=== PATIENT | male | born 1990 | race Caucasian/White ===

== ENCOUNTER 2018-02-01 12:12 | Emergency (ER) | payer BC ==
[~2018-02-01] VITALS: Ht 185.4 cm; Wt 97.5 kg
[2018-02-01 12:21] VITALS: BP 138/80
[2018-02-01] MEDS: KETOROLAC 60 MG/2 ML VIAL IM ONE (13:57)
[2018-02-01 14:21] VITALS: BP 138/80
== END 2018-02-01 14:20 | disposition home or self-care (01) ==
LOC: MED 12:12
DX: M54.5 Low back pain (principal); F17.210 Nicotine dependence, cigarettes, uncomplicated
CPT/HCPCS: 81002; 96372; 99283; J1885